=== PATIENT | male | born 1955 | race Caucasian/White ===

== ENCOUNTER 2019-05-20 21:16 | Inpatient (IN) | payer OTHER ==
[~2019-05-20] VITALS: Ht 167.6 cm; Wt 80.7 kg
[2019-05-20] MEDS ORDERED: TRAZ50 PO (21:23)
[2019-05-20] MEDS ORDERED: DULO60 PO (21:23)
[2019-05-20 21:42] LABS: BASOPHILS ABSOLUTE AUTO 0.03 K/mm3 (0.00-0.23); BASOPHILS PERCENT AUTO 1 % (0-2); EOSINOPHILS ABSOLUTE AUTO 0.57 K/mm3 (0.00-0.68); EOSINOPHILS PERCENT AUTO 10 % (0-6); Hematocrit 46.7 % (37.0-53.0); Hemoglobin 15.5 g/dL (13.5-17.5); IMMATURE GRAN ABSOLUTE AUTO 0.01 K/mm3 (0.00-0.10); IMMATURE GRAN PERCENT AUTO 0 % (0-1); LYMPHOCYTES ABSOLUTE AUTO 2.21 K/mm3 (0.84-5.20); LYMPHOCYTES PERCENT AUTO 39 % (21-46); MONOCYTES ABSOLUTE AUTO 0.44 K/mm3 (0.16-1.47); MONOCYTES PERCENT AUTO 8 % (4-13); Mean Corpuscular HGB 31.4 pg (26.0-34.0); Mean Corpuscular HGB Conc 33.2 g/dL (31.5-36.5); Mean Corpuscular Volume 95 fL (80-100); Mean Platelet Volume 8.8 fL (9.1-12.4); NEUTROPHILS ABSOLUTE AUTO 2.41 K/mm3 (1.96-9.15); NEUTROPHILS PERCENT AUTO 42 % (41-73); Platelet Count 289 K/mm3 (150-400); RDW Coefficient Variation 12.4 % (11.7-14.2); RDW Standard Deviation 43.5 fL (35.1-46.3); Red Blood Cell Count 4.94 M/mm3 (4.30-5.90); White Blood Cell Count 5.67 K/mm3 (4.00-11.30)
[2019-05-20 22:13] LABS: Alanine Aminotransfer (ALT/SGP 45 U/L (12-78); Albumin, Blood 3.9 g/dL (3.4-5.0); Albumin/Globulin Ratio 1.1 (0.8-1.8); Alk Phos 129 U/L (50-136); Anion Gap 6 mmol/L (6-16); Aspartate Aminotrans (AST/SGOT 32 U/L (12-37); Bilirubin, Total 0.5 mg/dL (0.1-1.0); Blood Urea Nitrogen 20 mg/dL (8-24); Bun/Creatinine Ratio 22.5 (12.0-20.0); CO2, Blood 27 mmol/L (21-32); Calcium, Blood 8.5 mg/dL (8.5-10.1); Chloride, Blood 109 mmol/L (98-108); Creatinine, Blood 0.89 mg/dL (0.60-1.20); Globulin, Blood 3.5 g/dL (2.2-4.0); Glomerular Filtration Rate >60 (60-); Glucose, Blood 103 mg/dL (70-99); Potassium, Blood 3.3 mmol/L (3.5-5.5); Sodium, Blood 142 mmol/L (136-145); Total Protein, Blood 7.4 g/dL (6.4-8.2)
[2019-05-21 01:35] LABS: International Normalized Ratio 1.03; Prothrombin Time Results 10.9 Sec (9.7-11.5)
--- NOTE | 2019-05-21 11:35 | NUR ---
ECHOCARDIOGRAM COMPLETED
[2019-05-21] MEDS ORDERED: DICL75ER PO (14:58)
--- NOTE | 2019-05-21 14:58 | NUR ---
PT ARRIVES FROM ER, AMBULATORY. A/O X4 ANSWERING QUSTIONS APPROPRIATELY IN FULL SENTENCES. DENIES ANY CP AT THIS TIME. UPON ARRIVING REQUESTING TO GO TO [facility]
[2019-05-21] MEDS ORDERED: Amlodipine Bes2.5 MG PO (14:59)
[2019-05-21] MEDS ORDERED: ALBU90OI INH (15:00)
[2019-05-21] MEDS ORDERED: ATHLETE'S FOO35.4 GM TOP (15:01)
--- NOTE | 2019-05-21 15:05 | NUR ---
PT OUT TO SMOKE, PT EDICATED THOROUGHLY ABOUT LEAVING BUILDING TO SMOKE PT STS "I KNOW" PT EXPRESSED THAT HE UNDERSTANDS RISKS OF LEAVING THE BUILDING. PT AMBULTED OUT THE DOOR WITH EVEN STEADY GAIT
--- NOTE | 2019-05-21 15:37 | NUR ---
SPOKE WITH DR WEBER TO UPDATE HER ABOUT PT LEAVBING TO SMOKE, NEW ORDER OBTAINED FOR NICOTENE PATCH. PT HAS NOW AT THIS TIME RETURNED FROM SMOKING
[2019-05-21 16:45] LABS: CHOL/HDL RATIO 2.7; Cholesterol 175 mg/dL (50-200); HDL Cholesterol 65 mg/dL (>39); LDL/HDL RATIO 1.5; Low Density Lipoprotein Chol 99 mg/dL (0-110); Triglycerides 55 mg/dL (30-160); Very Low Density Lipoprot Chol 11 mg/dL (6-32)
--- NOTE | 2019-05-21 17:49 | NUR ---
PT EXPRESSED THAT HE PLANS TO GO OUT TO SMOKE AFTER HE IS FINIHSED WITH HIS DINNER. PT IS AGAIN EDUCATED ABOUT LEAVING THE BUILDING HE IN ON HEPARIN DRIP FOR [place] AND IS CURRENTLY ON A NICOTINE PATCH PT STS "THAT'S IT THEY NEVER WORK" NIGHT CLUB MANAGER JODY IS CONSULTED
--- NOTE | 2019-05-21 17:51 | NUR ---
SHIFT NOTE PT ARRIVED FROM ER VIA GURNEY, AMBULTED FROM GURNEY TO ROOM BED WITH EVEN STEADY GAIT. PT DENIES ANY CP AT THIS TIME STS THAT PAIN HAD RESOLVED WITH AM. PT DENIES ANY PREVIOUS CARDIAC HX OTHER THAN HEART MURMER, STS HX OF HTN. THIS RN WAS UNABLE TO PERFORM INITIAL ASSESSMENT UPON ARRIVAL PT STATED THAT HE WAS GOING OUTSIDE TO SMOKE, PT WAS EDUCATED THROUGHLY EXPRESSED UNDERSTANDING OF THE SERIOUSNESS OF HIS CONDDITION BUT STS THAT HE IS GOING OUTSIDE DESPITE ALL TEACHING. PT RETURNED AFTER APPROX 30 MINUTES. LS CLEAR T/O, DENIES CP OR SOB. PT A/O X4, ANSWERING QUESTIONS APPROPRIATELY IN FULL SENTENCES. VSS.
--- NOTE | 2019-05-21 19:38 | NUR ---
Heprin gtt infusing at 15 u/kg/hr per orders and verified with off going day RNChloe. Pt denies chest pain or pressure at this time. Denies SOB. Conversing appropriately and is alert and oriented. Will continue to monitor.
--- NOTE | 2019-05-22 01:21 | NUR ---
Pt NPO at 2359 on 05/22/19 per orders; pt plan for angio in AM. No active CP or pressure this shift. Pt signed blood consent. No acute changes on tele, no acute changes from initial shift assessment. No concerns at this time. Will continue to monitor.
--- NOTE | 2019-05-22 05:34 | NUR ---
Shift Summary No acute changes this shift, VSS, no changes from initial shift assessment. Pt continues to deny chest pain or pressure, is independant in room, uses call light to make needs known. Pt is alert and oriented, moves all extremities. Pt has chronic pain but has denies the need for pain medication to manage pain all shift. Pt is NPO d/t angio planned for this am. Will continue to monitor until day RN assumes care.
[2019-05-22 06:17] LABS: Anion Gap 3 mmol/L (6-16); Blood Urea Nitrogen 17 mg/dL (8-24); CO2, Blood 29 mmol/L (21-32); Calcium, Blood 8.6 mg/dL (8.5-10.1); Chloride, Blood 110 mmol/L (98-108); Creatinine, Blood 0.85 mg/dL (0.60-1.20); Glomerular Filtration Rate >60 (60-); Glucose, Blood 93 mg/dL (70-99); Potassium, Blood 3.9 mmol/L (3.5-5.5); Sodium, Blood 142 mmol/L (136-145)
--- NOTE | 2019-05-22 08:15 | NUR ---
PT LEFT WITH [employer]ALE[employer]SE ATTENDANT CREW, WILL DO MORNING ASSESSMENT WHEN PT RETURNS. PT A/O X4, ANSWERING QUESTIONS APPROPRIATELY IN FULL SENTENCES. DENIES CP
--- NOTE | 2019-05-22 09:16 | NUR ---
pt left with coreroom foundry laborer, 0800 and 0900 meds held per coreroom foundry laborer until pt returns
--- NOTE | 2019-05-22 09:45 | NUR ---
[facility]
--- NOTE | 2019-05-22 10:00 | NUR ---
PT RETURNED FROM HEART CENTER A/O X4, ANSWERING QUESTIONS APPROPRIATELY IN FULL SENTENCES. PT DENIES ANY PAIN. T BAND IN PLACE RT WRIST, ARM SOFT, NO CONTUSIONS NOTED, PULSES PRESENT, NO ACTIVE BLEEDING NOTED, NO HEMATOMA. PT EXPRESSED UNDERSTANDING OF TEACHING R/T USE OF RT ARM POST PROCEEDURE. NO CP OR SOB REPORTED. PT EDUCATED ABOUT REOCCURING VITALS. PT EDUCATED ABOUT SMOKING CEASATION STS UNDERSTANDING BUT STS WILL CONTINUE TO SMOKE.
--- NOTE | 2019-05-22 16:40 | NUR ---
FAMILY CALLED THIS RN TO ROOM. RIGHT RADIAL SITE ACTIVELY BLEEDING. MANUAL PRESSURE HELD TO RIGHT RADIAL SITE X15 MINUTES. CHG OPSITE APPLIED TO RIGHT WRIST, ARMBOARD REAPPLIED. WILL CONTINUE TO MONITOR.
--- NOTE | 2019-05-22 17:44 | NUR ---
SHIFT NOTE PT TO HEART CENTER THIS AM FOR ANGIOGRAM, PT RETURNED FROM HEART CENTER WITH T-BAND IN PLACE. VITALS AND RT ARM ASSESSED PER 4 HOUR POST PROCEEDURE PROTOCOL. VITALS REMAINED STABLE, NO BLEEDING NOTED, PULSES REMAINED STRONG THROUGH OUT 5 HOURS OF MONITORING. T-BAND REMOVED NO BLEEDING NOTED, APPROX 30 MINUTES POST REMOVAL OF T-BAND PT BEGAN BLEEDING, SEE NOTE FROM JUAN R RN. NO ACTIVE BLEEDING NOTED AT THIS CURRENT TIME. PT UPDATED THAT WILL REMAIN HERE OVERNIGHT.
--- NOTE | 2019-05-23 05:47 | NUR ---
ASSUMED CARE APPROXIMATELY 1900; START OF SHIFT PT WAS NOT IN ROOM, RETURNED APPROXIMATELY 40 MINUTES LATER STATING HE HAD BEEN OUTSIDE SMOKING; PT EDUCATED ON THE IMPORTANCE OF NOT USING R ARM AND KEEPING ARM BOARD IN PLACE, IN ADDITION TO SAFETY CONCERNS; PT WAS EDUCATED ON SAFETY OF STAYING IN UNIT; PT IS NON-COMPLIANT; THIS RN OBSEVED PT USING R ARM AND AGAIN WAS EDUCATED ON NOT USING R ARM AND REMINDED OF EVENTS EARLIER IN DAY SHIFT THAT LED TO BLEEDING; PT LEFT AGAIN FOR SMOKING APPROXIMATELY @ 2145; WHEN PT RETURNED HE STATED HE WOULD NOT BE GOING OUT AGAIN; VSS; R WRIST CLEAN AND DRY, NO BLEEDING OR SWELLING NOTED; ARM BOARD IN PLACE; R FINGERS WARM; CAP REFILL <3 SEC; PT INDEPENDENT IN ROOM; PT DENIES PAIN; DENIES CHEST PAIN; PT EDUCATED NUMEROUS TIMES; PT SLEPT SEVERAL HOURS; CALL LIGHT IN REACH; BED IN LOWEST POSITION; WILL CONTINUE TO MONITOR AND ASSESS UNTIL HAND OFF TO DAY SHIFT RN.
--- NOTE | 2019-05-23 08:28 | NUR ---
REPORT REC'D FROM NOC RN'S. PT RESTING IN BED. DONE WITH BREAKFAST. VSS. TR SITE STABLE WITH OPSITE AND ARM BOARD ON. NO REBLEED T/O NOC. DISCHARGE ORDERS WRITTEN. WILL PROVIDE MEDICATIONS AND REVIEW DISCHARGE INSTRUCTIONS. ASSESS COMPLETE.
[2019-05-23] MEDS ORDERED: TRAZ50 PO (10:26)
[2019-05-23] MEDS ORDERED: Aspir 8181 MG PO (10:27)
[2019-05-23] MEDS ORDERED: ATOR40TA PO (10:28)
[2019-05-23] MEDS ORDERED: CLOP75 PO (10:28)
[2019-05-23] MEDS ORDERED: METO50ER PO (10:29)
[2019-05-23] MEDS ORDERED: Nicoderm Cq1 EAC1 TOP (10:30)
[2019-05-23] MEDS ORDERED: NITR.4SL SL (10:35)
== END 2019-05-23 11:42 | disposition home or self-care (01) | DRG 281 ==
LOC: ER 21:16 → PCU 05-21 03:29 → ERHOLD 05-21 03:29 → PCU 05-21 14:50
PROVIDERS: Emergency Medicine; ADMIT Internal Medicine
PROC: B2111ZZ Fluoroscopy of Multiple Coronary Arteries using Low Osmolar Contrast (ICD-10-PCS; principal; 2019-05-22)
PROC: 4A023N7 Measurement of Cardiac Sampling and Pressure, Left Heart, Percutaneous Approach (ICD-10-PCS; 2019-05-22)
DX: I21.4 Non-ST elevation (NSTEMI) myocardial infarction (principal); I97.610 Postprocedural hemorrhage of a circulatory system organ or structure following a cardiac catheterization; K21.9 Gastro-esophageal reflux disease without esophagitis; I10 Essential (primary) hypertension; F17.210 Nicotine dependence, cigarettes, uncomplicated; J44.9 Chronic obstructive pulmonary disease, unspecified; G47.33 Obstructive sleep apnea (adult) (pediatric); E87.6 Hypokalemia; I25.10 Atherosclerotic heart disease of native coronary artery without angina pectoris; Z79.82 Long term (current) use of aspirin; Z79.02 Long term (current) use of antithrombotics/antiplatelets
CPT/HCPCS: 36415; 71046; 80048; 80053; 80061; 83690; 83880; 84484; 85025; 85347; 85610; 85730; 93005; 93010; 93306; 93458; 93571; 94640; 94760; 96365; 96366; 99152; 99153; 99285-25; C1769; C1887; C1894; J0153; J1644; J2250; J3010; J7030; Q9967

== ENCOUNTER 2020-11-02 15:07 | Emergency (ER) | payer OTHER, MEDICARE ==
[~2020-11-02] VITALS: Ht 167.6 cm; Wt 61.2 kg
[~2020-11-02 15:07] MED LIST: ALBU90OI INH; ATHLETE'S FOO35.4 GM TOP; ATOR40TA PO; Amlodipine Bes2.5 MG PO; Aspir 8181 MG PO; CLOP75 PO; DICL75ER PO; DULO60 PO; METO50ER PO; NITR.4SL SL; Nicoderm Cq1 EAC1 TOP; TRAZ50 PO
[2020-11-02] MEDS ORDERED: Voltaren100 GM TOP (16:10)
== END 2020-11-02 16:30 | disposition home or self-care (01) ==
LOC: ER 15:07
DX: M77.8 Other enthesopathies, not elsewhere classified (principal); I10 Essential (primary) hypertension; K21.9 Gastro-esophageal reflux disease without esophagitis; Z79.82 Long term (current) use of aspirin; Z79.02 Long term (current) use of antithrombotics/antiplatelets; Z79.899 Other long term (current) drug therapy
CPT/HCPCS: 73030; 96372; 99283-25; J1885

== ENCOUNTER 2021-01-29 17:54 | Inpatient (IN) | payer OTHER, MEDICARE ==
[~2021-01-29] VITALS: Ht 167.6 cm; Wt 65.9 kg
[~2021-01-29 17:54] MED LIST changes: +Voltaren100 GM TOP
[2021-01-29 20:46] LABS: BASOPHILS ABSOLUTE AUTO 0.03 K/mm3 (0.00-0.23); BASOPHILS PERCENT AUTO 0 % (0-2); EOSINOPHILS ABSOLUTE AUTO 0.37 K/mm3 (0.00-0.68); EOSINOPHILS PERCENT AUTO 4 % (0-6); Hematocrit 41.1 % (37.0-53.0); IMMATURE GRAN ABSOLUTE AUTO 0.02 K/mm3 (0.00-0.10); IMMATURE GRAN PERCENT AUTO 0 % (0-1); LYMPHOCYTES ABSOLUTE AUTO 1.78 K/mm3 (0.84-5.20); LYMPHOCYTES PERCENT AUTO 19 % (21-46); MONOCYTES ABSOLUTE AUTO 0.65 K/mm3 (0.16-1.47); MONOCYTES PERCENT AUTO 7 % (4-13); Mean Corpuscular HGB 31.3 pg (26.0-34.0); Mean Corpuscular HGB Conc 34.1 g/dL (31.5-36.5); Mean Corpuscular Volume 92 fL (80-100); Mean Platelet Volume 8.5 fL (9.1-12.4); NEUTROPHILS PERCENT AUTO 70 % (41-73); Platelet Count 302 K/mm3 (150-400); RDW Coefficient Variation 12.4 % (11.7-14.2); Red Blood Cell Count 4.47 M/mm3 (4.30-5.90); White Blood Cell Count 9.55 K/mm3 (4.00-11.30)
[2021-01-29 21:01] LABS: International Normalized Ratio 1.11; Prothrombin Time Results 11.9 Sec (9.7-11.5)
[2021-01-29 21:04] LABS: Alanine Aminotransfer (ALT/SGP 36 U/L (12-78); Albumin, Blood 3.6 g/dL (3.4-5.0); Albumin/Globulin Ratio 1.2 (0.8-1.8); Alk Phos 117 U/L (50-136); Anion Gap 4 mmol/L (6-16); Aspartate Aminotrans (AST/SGOT 28 U/L (12-37); Bilirubin, Total 0.6 mg/dL (0.1-1.0); Blood Urea Nitrogen 15 mg/dL (8-24); CO2, Blood 28 mmol/L (21-32); Calcium, Blood 8.5 mg/dL (8.5-10.1); Chloride, Blood 107 mmol/L (98-108); Creatinine, Blood 0.94 mg/dL (0.60-1.20); Glomerular Filtration Rate >60 (60-); Glucose, Blood 110 mg/dL (70-99); Potassium, Blood 3.7 mmol/L (3.5-5.5); Sodium, Blood 139 mmol/L (136-145); Total Protein, Blood 6.6 g/dL (6.4-8.2)
--- NOTE | 2021-01-29 22:11 | NUR ---
SURGICAL ADMIT PT BROUGHT TO RM 215 BY VINEET FROM ER @ 2109. PT A&O X4. VSS. SPO2 > 92% ON RA. PT REPORTS 9/10 L HIP PAIN DESPITE PREVIOUS MEDICATION IN ER. PT TO REMAIN ON GURNEY UNTIL ABLE TO BE TAKEN TO & FROM IMAGING FOR LLE CT TO PREVENT MULTIPLE PT TRANSFERS/DISCOMFORT. COVID SCREENING SWAB DONE UPON PT ARRIVAL TO ROOM. AWAITING RESULTS. PT NPO. WILL CONTINUE TO MONITOR & PROVIDE CARE.
[2021-01-29 22:19] LABS: SARS-Cov-2 (COVID-19) PCR, MMC NEGATIVE (NEGATIVE)
[2021-01-30 04:32] LABS: BASOPHILS ABSOLUTE AUTO 0.02 K/mm3 (0.00-0.23); BASOPHILS PERCENT AUTO 0 % (0-2); EOSINOPHILS ABSOLUTE AUTO 0.05 K/mm3 (0.00-0.68); EOSINOPHILS PERCENT AUTO 1 % (0-6); Hematocrit 39.4 % (37.0-53.0); Hemoglobin 13.3 g/dL (13.5-17.5); IMMATURE GRAN ABSOLUTE AUTO 0.03 K/mm3 (0.00-0.10); IMMATURE GRAN PERCENT AUTO 0 % (0-1); LYMPHOCYTES ABSOLUTE AUTO 1.01 K/mm3 (0.84-5.20); LYMPHOCYTES PERCENT AUTO 11 % (21-46); MONOCYTES ABSOLUTE AUTO 0.68 K/mm3 (0.16-1.47); MONOCYTES PERCENT AUTO 8 % (4-13); Mean Corpuscular HGB Conc 33.8 g/dL (31.5-36.5); Mean Corpuscular Volume 92 fL (80-100); Mean Platelet Volume 8.5 fL (9.1-12.4); NEUTROPHILS ABSOLUTE AUTO 7.28 K/mm3 (1.96-9.15); NEUTROPHILS PERCENT AUTO 80 % (41-73); Platelet Count 242 K/mm3 (150-400); RDW Coefficient Variation 12.4 % (11.7-14.2); RDW Standard Deviation 42.1 fL (35.1-46.3); Red Blood Cell Count 4.29 M/mm3 (4.30-5.90); White Blood Cell Count 9.07 K/mm3 (4.00-11.30)
--- NOTE | 2021-01-30 04:47 | NUR ---
PAIN / CALL TO PT C/O 05/02 L HIP PAIN, MEDICATED W/ PRN IV FENTANYL PER EMAR W/ NO IMPROVEMENT. PT STATING "THAT DOSE WAS LIKE TAKING A TYLENOL." PT GRIMACING, ATTEMPTING TO POSITION LLE COMFORTABLY. CALL TO MD BYNUM W/ BRENDAN TRAORE ORDER FOR PRN IV DILAUDID, SEE ORDER.
[2021-01-30 05:01] LABS: Alanine Aminotransfer (ALT/SGP 31 U/L (12-78); Albumin, Blood 3.3 g/dL (3.4-5.0); Albumin/Globulin Ratio 1.1 (0.8-1.8); Alk Phos 106 U/L (50-136); Anion Gap 5 mmol/L (6-16); Aspartate Aminotrans (AST/SGOT 23 U/L (12-37); Bilirubin, Total 0.7 mg/dL (0.1-1.0); Blood Urea Nitrogen 16 mg/dL (8-24); Bun/Creatinine Ratio 19.6 (12.0-20.0); CO2, Blood 25 mmol/L (21-32); Calcium, Blood 7.9 mg/dL (8.5-10.1); Chloride, Blood 106 mmol/L (98-108); Creatinine, Blood 0.82 mg/dL (0.60-1.20); Glomerular Filtration Rate >60 (60-); Glucose, Blood 103 mg/dL (70-99); Potassium, Blood 3.9 mmol/L (3.5-5.5); Sodium, Blood 136 mmol/L (136-145); Total Protein, Blood 6.3 g/dL (6.4-8.2)
--- NOTE | 2021-01-30 06:04 | NUR ---
SHIFT SUMMARY PT CONTINUES TO BE A&O X4. VSS. SPO2 > 92% ON RA. PT DENIES IMPROVEMENT IN L HIP PAIN W/ PRN IV FENTANYL USE X2 THIS SHIFT. PT THEN MEDICATED W/ NEW PRN IV DILAUDID ORDER X1 THIS SHIFT W/ PT NOW SLEEPING IN RM. PT NPO, AWAITING SURGICAL CONSULT TODAY. NS GTT X1 INFUSING PER ORDER. WILL CONTINUE TO MONITOR & PROVIDE CARE UNTIL REPORT OFF TO DAY SHIFT RN.
--- NOTE | 2021-01-30 11:49 | NUR ---
PT TO OR AT 1145.
--- NOTE | 2021-01-30 12:20 | NUR ---
History, Chart, Medications and Allergies reviewed before start of procedure. Patient confirms NPO status and agrees with scheduled surgery. Pre-Op teaching done. Pt verbalizes understanding.
--- NOTE | 2021-01-30 16:15 | NUR ---
PT BACK TO ROOM AT 1445. MED WITH NORCO FOR PAIN. PT IS ON 2L O2 TO MAINTAIN O2 SAT. DRESSING TO HIP CDI. 2ND DOSE TXA GIVEN 3HRS AFTER FIRST DOSE.
--- NOTE | 2021-01-30 17:28 | NUR ---
SHIFT SUMMARY PT IS A/O X4. S/P L HIP NAILING TODAY. PT MED WITH NORCO POST-OP, STATES THIS IS HELPING WITH PAIN. DRESSING TO L HIP CDI. PT USING 2L O2 POST-OP. DECLINED CPAP AT [facility]. PT HAS BEEN COUGHING; SUCTION SET UP AND PT HAS BEEN USING IND. PT TOLERATING PO INTAKE AND VOIDING POST-OP.
[2021-01-31 04:32] LABS: BASOPHILS ABSOLUTE AUTO 0.01 K/mm3 (0.00-0.23); BASOPHILS PERCENT AUTO 0 % (0-2); EOSINOPHILS PERCENT AUTO 0 % (0-6); Hematocrit 32.8 % (37.0-53.0); Hemoglobin 10.9 g/dL (13.5-17.5); IMMATURE GRAN ABSOLUTE AUTO 0.08 K/mm3 (0.00-0.10); IMMATURE GRAN PERCENT AUTO 1 % (0-1); LYMPHOCYTES ABSOLUTE AUTO 0.95 K/mm3 (0.84-5.20); LYMPHOCYTES PERCENT AUTO 7 % (21-46); MONOCYTES ABSOLUTE AUTO 0.96 K/mm3 (0.16-1.47); MONOCYTES PERCENT AUTO 7 % (4-13); Mean Corpuscular HGB 30.9 pg (26.0-34.0); Mean Corpuscular HGB Conc 33.2 g/dL (31.5-36.5); Mean Corpuscular Volume 93 fL (80-100); Mean Platelet Volume 8.8 fL (9.1-12.4); NEUTROPHILS ABSOLUTE AUTO 12.48 K/mm3 (1.96-9.15); NEUTROPHILS PERCENT AUTO 86 % (41-73); Platelet Count 231 K/mm3 (150-400); RDW Coefficient Variation 12.4 % (11.7-14.2); RDW Standard Deviation 41.9 fL (35.1-46.3); Red Blood Cell Count 3.53 M/mm3 (4.30-5.90); White Blood Cell Count 14.48 K/mm3 (4.00-11.30)
[2021-01-31 04:53] LABS: Anion Gap 2 mmol/L (6-16); Blood Urea Nitrogen 15 mg/dL (8-24); Bun/Creatinine Ratio 17.1 (12.0-20.0); CO2, Blood 29 mmol/L (21-32); Calcium, Blood 7.8 mg/dL (8.5-10.1); Chloride, Blood 106 mmol/L (98-108); Creatinine, Blood 0.88 mg/dL (0.60-1.20); Glomerular Filtration Rate >60 (60-); Glucose, Blood 152 mg/dL (70-99); Magnesium, Blood 2.2 mg/dL (1.6-2.4); Potassium, Blood 4.2 mmol/L (3.5-5.5); Sodium, Blood 137 mmol/L (136-145)
--- NOTE | 2021-01-31 05:28 | NUR ---
A/OX4. VSS ON 1L O2 VIA NC. BP SOFT, PT ASYMPTOMATIC. IV FLUIDS INFUSING. DRESSING CDI. NO OOB THIS SHIFT. PAIN MANAGED WELL W/ PRN PAIN MEDS. SLEEPING B/W CARE. USING CALL LIGHT TO MAKE NEEDS KNOWN.
--- NOTE | 2021-01-31 17:29 | NUR ---
SHIFT SUMMARY PT IS A/O X4, 1X ASSIST UP TO BATHROOM. PT HAS BEEN UP TO CHAIR MOST OF THE SHIFT TODAY. HE WORKED WITH THERAPY AND TOELRATED WELL. TOLERATING PO INTAKE AND VOIDING. PAIN MANAGED W/ PO PAIN MED PER ORDER. PLAN IS TO DC HOME TOMORROW WITH HOME HEALTH.
--- NOTE | 2021-02-01 03:37 | NUR ---
SHIFT SUMMARY NO ACUTE CHANGES OVERNIGHT. VSS. PT REPORTS PAIN, MANAGED WITH 0.2MG DILAUDID X1 AND 5/325 NORCO. PT ALSO REQUESTED ZOFRAN AFTER TAKING PO NORCO. HE AMBULATED IN THE HALLWAY X1 LAST NIGHT. AMBULATING IN BATHROOM WITH FWW &GB, TOLERATING IT WELL. PT DENIES NUMBNESS AND TINGLING SENSATION. SCD'S AT NIGHT. HX OF INNA, CPAP USED AT NIGHT. PT SLEPT GOOD T/O SHIFT. TOLERATING PO INTAKE, DENIES N/V. AQUACEL DRESSING X2 ON L HIP, CDI. CALL LIGHT WITHIN REACH. WILL PROVIDE REPORT TO ONCOMING NURSE.
[2021-02-01 03:43] LABS: BASOPHILS ABSOLUTE AUTO 0.01 K/mm3 (0.00-0.23); BASOPHILS PERCENT AUTO 0 % (0-2); EOSINOPHILS ABSOLUTE AUTO 0.09 K/mm3 (0.00-0.68); EOSINOPHILS PERCENT AUTO 1 % (0-6); Hematocrit 31.4 % (37.0-53.0); Hemoglobin 10.5 g/dL (13.5-17.5); IMMATURE GRAN ABSOLUTE AUTO 0.01 K/mm3 (0.00-0.10); IMMATURE GRAN PERCENT AUTO 0 % (0-1); LYMPHOCYTES ABSOLUTE AUTO 2.12 K/mm3 (0.84-5.20); LYMPHOCYTES PERCENT AUTO 28 % (21-46); MONOCYTES ABSOLUTE AUTO 0.73 K/mm3 (0.16-1.47); MONOCYTES PERCENT AUTO 10 % (4-13); Mean Corpuscular HGB 30.6 pg (26.0-34.0); Mean Corpuscular HGB Conc 33.4 g/dL (31.5-36.5); Mean Corpuscular Volume 92 fL (80-100); Mean Platelet Volume 8.8 fL (9.1-12.4); NEUTROPHILS ABSOLUTE AUTO 4.71 K/mm3 (1.96-9.15); NEUTROPHILS PERCENT AUTO 62 % (41-73); Platelet Count 220 K/mm3 (150-400); RDW Coefficient Variation 12.4 % (11.7-14.2); RDW Standard Deviation 41.7 fL (35.1-46.3); Red Blood Cell Count 3.43 M/mm3 (4.30-5.90); White Blood Cell Count 7.67 K/mm3 (4.00-11.30)
[2021-02-01] MEDS ORDERED: Norco 5-325 Ta1 EACH PO (12:31)
[2021-02-01] MEDS ORDERED: ONDA4 PO (13:11)
--- NOTE | 2021-02-01 13:12 | NUR ---
RFA IV DISCONTINUED, PT TOLERATED WELL. NO BLEEDING OBSERVED W/ REMOVAL AND CATHETER/CATHETER TIP IN TACT. LIGHT PRESSURE DRESSING APPLIED TO RFA, GAUZE AND COBAN.
--- NOTE | 2021-02-01 13:56 | NUR ---
DISCHARGE PT PROVIDED WITH WRITTEN AND VERBAL DISCHARGE INSTRUCTIONS, PT REPORTED UNDERSTANDING INSTRUCTIONS. CLEAN DRESSINGS PROVIDED AND INCISION CLEANSED WITH H2O2 AND DRESSING CHANGED BY MELINA STUDENT NURSE PRIOR TO DISCHARGE. DRAINAGE PRESENT ON DRESSING PRIOR TO DRESSING CHANGE. PT REPORTED HE HAD EQUIPMENT AT HOME AND WOULD BE ABLE TO OBTAIN ANY ADDITIONAL EQUIPMENT NEEDED. MESSAGE LEFT FOR ONEIL MEZA REGARDING FOLLOW-UP WITH [facility] ON WEDNESDAY. IT APPEARS CARE MANAGMENT WAS ALREADY IN TOUCH WITH [facility]; MESSAGE LEFT FOR HOME HEALTH NOTIFYING THEM OF PT'S DISCHARGE AND NEED FOR HOME HEALTH. PT'S BP IMPROVED PRIOR TO DISCHARGE, PT EDUCATED ABOUT SYMPTOMS OF LOW BP AND EDUCATED TO CHECK HIS BP PRIOR TO TAKING HIS METOPROLOL. PT WAS ALSO EDUCATED TO FOLLOW UP WITH HIS PCP WITHIN 72 HOURS OF DISCHARGE REGARDING POSSIBLE NEED FOR ADJUSTED METOPROLOL DOSING. PT ESCORTED OUT IN W/C BY BESS MARTINEZ.
== END 2021-02-01 13:45 | disposition home health service (06) | DRG 481 ==
LOC: ER 17:54 → SURS 19:58
PROVIDERS: Emergency Medicine; Family Medicine; Orthopaedic Surgery; ADMIT Internal Medicine
PROC: 3E0234Z Introduction of Serum, Toxoid and Vaccine into Muscle, Percutaneous Approach (ICD-10-PCS; 2021-01-30)
PROC: 0QS734Z Reposition Left Upper Femur with Internal Fixation Device, Percutaneous Approach (ICD-10-PCS; principal; 2021-01-30 12:30)
DX: S72.142A Displaced intertrochanteric fracture of left femur, initial encounter for closed fracture (principal); D62 Acute posthemorrhagic anemia; D72.829 Elevated white blood cell count, unspecified; J44.9 Chronic obstructive pulmonary disease, unspecified; G47.33 Obstructive sleep apnea (adult) (pediatric); K21.9 Gastro-esophageal reflux disease without esophagitis; F17.210 Nicotine dependence, cigarettes, uncomplicated; D64.9 Anemia, unspecified; I25.10 Atherosclerotic heart disease of native coronary artery without angina pectoris; I10 Essential (primary) hypertension; S72.042A Displaced fracture of base of neck of left femur, initial encounter for closed fracture; I25.2 Old myocardial infarction; Z79.82 Long term (current) use of aspirin; Z79.899 Other long term (current) drug therapy; Z98.890 Other specified postprocedural states; W11.XXXA Fall on and from ladder, initial encounter; Z23 Encounter for immunization
CPT/HCPCS: 36415; 73502; 73700; 80048; 80053; 83735; 85025; 85610; 85730; 90670; 93005; 93010; 94640; 94762; 96374; 96375; 97110; 97116; 97162; 97166; 97530; 97535; 99285-25; A9270; C1713; C1769; J0690; J1100; J1170; J1650; J1885; J2250; J2405; J2704; J3010; J7030; J7120; U0004